=== PATIENT | female | born 1990 | race Two or more races ===

== ENCOUNTER → 2020-01-15 | Outpatient (CLI) | payer OTHER | END | disposition home or self-care (01) | LOC: LAB 10:36 | PROVIDERS: ATTEND Preventive Medicine Preventive Medicine/Occupational Environmental Medicine | DX: Z02.1 Encounter for pre-employment examination (principal) | CPT/HCPCS: 36415; 86706; 86735; 86762; 86765; 86787 ==

== ENCOUNTER → 2020-06-26 | Outpatient (CLI) | payer BC ==
[2020-06-26 14:44] LABS: Eosinophils # (auto) 0.1 10 ^3/uL (0-0.8); Lymphocytes # (auto) 1.9 10 ^3/uL (0.4-5.4); Mean Corpuscular Hemoglobin 20.2 pg (28.0-32.0); Neutrophils # (auto) 7.1 10 ^3/uL (1.6-8.6); White Blood Cell 9.7 10^3/uL (4.4-10.8)
[2020-06-26 14:46] LABS: Basophils # (auto) 0 10 ^3/uL (0-0.2); Basophils % (auto) 0.5 % (0.0-2.0); Eosinophils % (auto) 0.5 % (0.0-7.0); Hematocrit 31.6 % (36.0-46.0); Hemoglobin 9.9 g/dL (12.2-16.2); Lymphocytes % (auto) 19.5 % (10.0-50.0); Mean Corpuscular Hgb Conc. 31.3 g/dL (32.0-36.0); Mean Corpuscular Volume 64.6 fL (80.0-100.0); Monocytes # (auto) 0.6 10 ^3/uL (0-1.3); Monocytes % (auto) 6.7 % (0.0-12.0); Neutrophils % (auto) 72.8 % (37.0-80.0); Platelet Count (auto) 483 10^3/uL (140-450); Red Blood Cells 4.89 10^6/uL (4.0-5.20); Red Cell Distribution Width 18.8 % (11.8-14.3)
[2020-06-26 15:09] LABS: Calcium 8.6 mg/dL (8.5-10.1); Potassium 3.6 mmol/L (3.5-5.1)
[2020-06-26 15:13] LABS: BUN/Creatinine Ratio 12.7; Bilirubin, Total 0.5 mg/dL (0.2-1.0); Total Protein 8.6 g/dL (6.4-8.2)
== END | disposition home or self-care (01) ==
LOC: LAB 14:36
PROVIDERS: ATTEND Physician Assistant
DX: R53.83 Other fatigue (principal)
CPT/HCPCS: 36415; 80053; 85025

== ENCOUNTER 2021-09-04 07:53 | Emergency (ER) | payer BC ==
[~2021-09-04] VITALS: Ht 152.4 cm; Wt 77.1 kg
[2021-09-04 08:32] VITALS: BP 132/83
[2021-09-04 08:44] LABS: Eosinophils # (auto) 0.2 10 ^3/uL (0-0.8); Monocytes # (auto) 0.6 10 ^3/uL (0-1.3); Nucleated Red Blood Cells % 0.1 %; Red Blood Cells 4.71 10^6/uL (4.0-5.20)
[2021-09-04 08:47] LABS: Basophils # (auto) 0.1 10 ^3/uL (0-0.2); Basophils % (auto) 0.6 % (0.0-2.0); Eosinophils % (auto) 2.7 % (0.0-7.0); Hematocrit 32.3 % (36.0-46.0); Lymphocytes # (auto) 2.2 10 ^3/uL (0.4-5.4); Lymphocytes % (auto) 27.4 % (10.0-50.0); Mean Corpuscular Hemoglobin 21.1 pg (28.0-32.0); Mean Corpuscular Hgb Conc. 30.8 g/dL (32.0-36.0); Mean Corpuscular Volume 68.6 fL (80.0-100.0); Monocytes % (auto) 7.2 % (0.0-12.0); Neutrophils % (auto) 62.1 % (37.0-80.0); Red Cell Distribution Width 20.1 % (11.8-14.3); White Blood Cell 8.1 10^3/uL (4.4-10.8)
[2021-09-04 08:53] LABS: BUN/Creatinine Ratio 11.8; Calcium 8.5 mg/dL (8.5-10.1); Potassium 3.7 mmol/L (3.5-5.1)
[2021-09-04 08:56] LABS: INR 1.01 (0.9-1.15)
[2021-09-04] MEDS ORDERED: KETOROLAC TROMETH 60MG/2ML VIAL IM ONE (09:30)
[2021-09-04] MEDS ORDERED: MEDR5TAB28 OR (09:52)
[2021-09-04] MEDS ORDERED: NAPR500T31 PO (09:52)
== END 2021-09-04 09:47 | disposition home or self-care (01) ==
LOC: ER 07:53
DX: N92.1 Excessive and frequent menstruation with irregular cycle (principal); D64.9 Anemia, unspecified; D25.9 Leiomyoma of uterus, unspecified
CPT/HCPCS: 36415; 80048; 84443; 85025; 85610; 96372; 99283; J1885

== ENCOUNTER 2022-09-25 10:16 | Emergency (ER) | payer BC ==
[~2022-09-25] VITALS: Ht 152.4 cm; Wt 79.5 kg
[~2022-09-25 10:16] MED LIST: MEDR5TAB28 OR; NAPR500T31 PO
[2022-09-25 10:55] LABS: Basophils # (auto) 0.1 10 ^3/uL (0-0.2); Eosinophils # (auto) 0.4 10 ^3/uL (0-0.8); Monocytes # (auto) 0.7 10 ^3/uL (0-1.3)
[2022-09-25 10:56] LABS: Basophils % (auto) 1.1 % (0.0-2.0); Eosinophils % (auto) 4.9 % (0.0-7.0); Hematocrit 22.3 % (36.0-46.0); Lymphocytes % (auto) 24.8 % (10.0-50.0); Mean Corpuscular Hemoglobin 17.8 pg (28.0-32.0); Mean Corpuscular Hgb Conc. 29.4 g/dL (32.0-36.0); Mean Corpuscular Volume 60.5 fL (80.0-100.0); Monocytes % (auto) 8.2 % (0.0-12.0); Neutrophils # (auto) 4.9 10 ^3/uL (1.6-8.6); Nucleated Red Blood Cells % 0.1 %; Red Blood Cells 3.69 10^6/uL (4.0-5.20); White Blood Cell 8.1 10^3/uL (4.4-10.8)
[2022-09-25 11:03] LABS: Hemoglobin 6.6 g/dL (12.2-16.2)
[2022-09-25 11:09] LABS: INR 0.93 (0.9-1.15); Partial Thromboplastin Time 21.4 sec (24.6-33.4)
[2022-09-25 11:12] LABS: Albumin 3.7 g/dL (3.4-5.0); Calcium 8.5 mg/dL (8.5-10.1); Potassium 3.6 mmol/L (3.5-5.1)
[2022-09-25 11:17] LABS: BUN/Creatinine Ratio 12.1; Bilirubin, Total 0.3 mg/dL (0.2-1.0); Total Protein 8.1 g/dL (6.4-8.2)
[2022-09-25] MEDS ORDERED: SODIUM CHLORIDE 0.9% 1,000 ML IV ONE (11:30)
[2022-09-25] MEDS ORDERED: GADOTERATE MEG 10 MMOL/20ml INJ (0.5MMOL/ml) IV ONE (11:50)
[2022-09-25 16:48] VITALS: BP 113/63
[2022-09-25 17:03] VITALS: BP 103/52
[2022-09-25 19:52] VITALS: BP 114/74
[2022-09-25] MEDS ORDERED: FERR-7 PO (21:35)
== END 2022-09-25 21:47 | disposition home or self-care (01) ==
LOC: ER 10:16 → EEVIPCON 10:16 → ER 21:46
DX: D50.9 Iron deficiency anemia, unspecified (principal); D25.9 Leiomyoma of uterus, unspecified; N92.0 Excessive and frequent menstruation with regular cycle
CPT/HCPCS: 36415; 36430; 73723; 80053; 85025; 85610; 85730; 86850; 86900; 86901; 86920; 96360; 99285; A9575; J7030; P9016

== ENCOUNTER 2022-10-03 09:03 | Inpatient (IN) | payer BC ==
[~2022-10-03] VITALS: Ht 152.4 cm; Wt 90.0 kg
[~2022-10-03 09:03] MED LIST changes: +FERR-7 PO
[2022-10-03] MEDS ORDERED: SODIUM CHLORIDE 0.9% 1,000 ML IV ONE (09:15)
[2022-10-03] MEDS ORDERED: ENOXAPARIN SOD 80 MG/0.8ML SYRINGE SC ONE (09:45)
[2022-10-03 09:46] LABS: Hematocrit 31.1 % (36.0-46.0); Lymphocytes # (auto) 1.4 10 ^3/uL (0.4-5.4); Monocytes # (auto) 0.3 10 ^3/uL (0-1.3); Red Blood Cells 4.59 10^6/uL (4.0-5.20)
[2022-10-03 09:48] LABS: Basophils # (auto) 0 10 ^3/uL (0-0.2); Basophils % (auto) 0.7 % (0.0-2.0); Eosinophils # (auto) 0.2 10 ^3/uL (0-0.8); Eosinophils % (auto) 2.3 % (0.0-7.0); Hemoglobin 9.8 g/dL (12.2-16.2); Lymphocytes % (auto) 20.5 % (10.0-50.0); Mean Corpuscular Hemoglobin 21.4 pg (28.0-32.0); Mean Corpuscular Hgb Conc. 31.5 g/dL (32.0-36.0); Mean Corpuscular Volume 67.8 fL (80.0-100.0); Monocytes % (auto) 4.5 % (0.0-12.0); Neutrophils # (auto) 5.1 10 ^3/uL (1.6-8.6)
[2022-10-03 09:50] LABS: Albumin 3.6 g/dL (3.4-5.0); Calcium 8.5 mg/dL (8.5-10.1); Potassium 3.8 mmol/L (3.5-5.1)
[2022-10-03 09:53] LABS: BUN/Creatinine Ratio 11.1; Bilirubin, Total 0.3 mg/dL (0.2-1.0); INR 0.96 (0.9-1.15); Total Protein 7.5 g/dL (6.4-8.2)
[2022-10-03 10:01] LABS: Red Cell Distribution Width 34.5 % (11.8-14.3)
[2022-10-03] MEDS ORDERED: HYDROcodone-ACET 5/325MG TAB PO PRN (10:45)
[2022-10-03] MEDS ORDERED: ACETAMINOPHEN 325 MG TAB PO PRN (10:45)
[2022-10-03 11:20] LABS: Cholesterol 183 mg/dL (< 200); Triglycerides 221 mg/dL (< 150)
[2022-10-03 11:23] LABS: HDL Cholesterol 50 mg/dL (40-59); LDL Cholesterol 112 mg/dL (< 100)
[2022-10-03 11:51] LABS: Urine Bacteria MOD /hpf (None Seen); Urine Blood Negative /uL (Negative); Urine Specific Gravity 1.005 (1.001-1.035); Urine WBC 2 /hpf (0 - 5)
[2022-10-03 12:42] LABS: % Iron Saturation 3.6 % (15-50)
[2022-10-03] MEDS: SODIUM CHLORIDE 0.9% 1,000 ML IV SCH (14:56)
[2022-10-03] MEDS: FERROUS SULFATE 325mg EC TAB PO SCH ×2 (15:03→21:31)
[2022-10-03 17:10] VITALS: BP 111/80
[2022-10-03] MEDS: ENOXAPARIN SOD 80 MG/0.8ML SYRINGE SC SCH (21:32)
[2022-10-03 22:00] VITALS: BP 126/78
[2022-10-04] MEDS: SODIUM CHLORIDE 0.9% 1,000 ML IV SCH (03:25)
[2022-10-04 05:00] VITALS: BP 102/66
[2022-10-04] MEDS: FERROUS SULFATE 325mg EC TAB PO SCH ×2 (06:04→14:16)
[2022-10-04 06:47] LABS: Albumin 3.3 g/dL (3.4-5.0); BUN/Creatinine Ratio 13.7; Calcium 8.4 mg/dL (8.5-10.1); Potassium 3.7 mmol/L (3.5-5.1)
[2022-10-04 06:50] LABS: Bilirubin, Total 0.2 mg/dL (0.2-1.0); Total Protein 7.4 g/dL (6.4-8.2)
[2022-10-04 09:05] VITALS: BP 112/75
[2022-10-04] MEDS: ENOXAPARIN SOD 80 MG/0.8ML SYRINGE SC SCH (10:31)
[2022-10-04 13:03] VITALS: BP 110/69
[2022-10-04] MEDS ORDERED: APIX5TAB PO (15:46)
[2022-10-04 16:40] VITALS: BP 112/75
[2022-10-04 17:07] VITALS: BP 114/72
[2022-10-05 09:35] LABS: Folate (Folic Acid) 19.37 ng/mL (5.38-24)
== END 2022-10-04 18:00 | disposition home or self-care (01) | DRG 301 ==
LOC: ER 09:03 → EEVIPCON 09:03 → OVERFLOW 10:45 → EEVIPCON 10:45 → WEST WING 14:00
PROVIDERS: ADMIT Nurse Practitioner Family; ATTEND Nurse Practitioner Family
DX: I82.441 Acute embolism and thrombosis of right tibial vein (principal); E66.01 Morbid (severe) obesity due to excess calories; D25.9 Leiomyoma of uterus, unspecified; D50.9 Iron deficiency anemia, unspecified; E78.5 Hyperlipidemia, unspecified; N83.209 Unspecified ovarian cyst, unspecified side; Z20.822 Contact with and (suspected) exposure to COVID-19; Z68.38 Body mass index [BMI] 38.0-38.9, adult
CPT/HCPCS: 36415; 80053; 80061; 81001; 81025; 82270; 82607; 82746; 83036; 83540; 83550; 84443; 85025; 85610; 86850; 86900; 86901; 87426; 93971; 96360; 96361; 96372; G0378

== ENCOUNTER → 2022-10-13 | Outpatient (CLI) | payer BC ==
[~2022-10-13] MED LIST changes: +APIX5TAB PO
[2022-10-13 09:33] LABS: Eosinophils # (auto) 0.2 10 ^3/uL (0-0.8); Neutrophils # (auto) 3.8 10 ^3/uL (1.6-8.6); White Blood Cell 6.2 10^3/uL (4.4-10.8)
[2022-10-13 09:36] LABS: Basophils # (auto) 0 10 ^3/uL (0-0.2); Basophils % (auto) 0.8 % (0.0-2.0); Eosinophils % (auto) 3.8 % (0.0-7.0); Hematocrit 27.5 % (36.0-46.0); Hemoglobin 8.9 g/dL (12.2-16.2); Lymphocytes # (auto) 1.8 10 ^3/uL (0.4-5.4); Lymphocytes % (auto) 28.5 % (10.0-50.0); Mean Corpuscular Hemoglobin 23.3 pg (28.0-32.0); Mean Corpuscular Hgb Conc. 32.3 g/dL (32.0-36.0); Mean Corpuscular Volume 72.1 fL (80.0-100.0); Monocytes # (auto) 0.4 10 ^3/uL (0-1.3); Neutrophils % (auto) 60.9 % (37.0-80.0); Nucleated Red Blood Cells % 0.2 %; Red Blood Cells 3.81 10^6/uL (4.0-5.20)
[2022-10-13 10:08] LABS: Red Cell Distribution Width 31.6 % (11.8-14.3)
[2022-10-13 10:21] LABS: Ferritin 23.5 ng/mL (10-322); Follicle Stimulating Hormone 5.68 IU/L (SEE BELOW); Leuteinizing Hormone 5.4 IU/L
[2022-10-13 10:40] LABS: % Iron Saturation 2.8 % (15-50)
[2022-10-13 10:41] LABS: Albumin 3.7 g/dL (3.4-5.0); BUN/Creatinine Ratio 13.6; Bilirubin, Total 0.3 mg/dL (0.2-1.0); Calcium 8.7 mg/dL (8.5-10.1); Potassium 3.7 mmol/L (3.5-5.1); Total Protein 7.6 g/dL (6.4-8.2)
== END | disposition home or self-care (01) ==
LOC: LAB 08:52
PROVIDERS: ATTEND Nurse Practitioner Family
DX: N84.0 Polyp of corpus uteri (principal); D50.0 Iron deficiency anemia secondary to blood loss (chronic); E66.1 Drug-induced obesity; D25.9 Leiomyoma of uterus, unspecified; D64.9 Anemia, unspecified; Z68.34 Body mass index [BMI] 34.0-34.9, adult
CPT/HCPCS: 36415; 80053; 80061; 82306; 82607; 82672; 82728; 83001; 83002; 83036; 83540; 83550; 84403; 84443; 85025; 87086

== ENCOUNTER → 2023-05-27 | Outpatient (CLI) | payer BC ==
[~2023-05-27] MED LIST changes: +CEPH250C PO; +NAPR-746 PO; -NAPR500T31 PO
[2023-05-27 11:29] LABS: Basophils # (auto) 0.1 10 ^3/uL (0-0.2); Eosinophils # (auto) 0.2 10 ^3/uL (0-0.8); Nucleated Red Blood Cells % 0.1 %
[2023-05-27 11:30] LABS: Basophils % (auto) 1.6 % (0.0-2.0); Hematocrit 32.9 % (36.0-46.0); Hemoglobin 10.1 g/dL (12.2-16.2); Lymphocytes % (auto) 25.8 % (10.0-50.0); Mean Corpuscular Hemoglobin 19.7 pg (28.0-32.0); Mean Corpuscular Hgb Conc. 30.5 g/dL (32.0-36.0); Mean Corpuscular Volume 64.5 fL (80.0-100.0); Monocytes # (auto) 0.5 10 ^3/uL (0-1.3); Neutrophils % (auto) 63.6 % (37.0-80.0); Red Blood Cells 5.11 10^6/uL (4.0-5.20); White Blood Cell 7.9 10^3/uL (4.4-10.8)
[2023-05-27 11:43] LABS: Urine Bacteria FEW /hpf (None Seen); Urine Blood Negative /uL (Negative); Urine Clarity HAZY (Clear); Urine Color Colorless (Yellow); Urine Protein, UAD Negative (Negative); Urine Specific Gravity 1.018 (1.001-1.035); Urine Urobilinogen Normal (Negative); Urine WBC 3 /hpf (0 - 5); Urine pH 5.5 (5.0-8.0)
[2023-05-27 11:44] LABS: INR 1.04 (0.9-1.15); Partial Thromboplastin Time 25.1 SEC (24.5-34.5); Prothrombin Time 10.9 sec (9.3-11.8)
[2023-05-27 12:35] LABS: % Iron Saturation 9.1 % (15-50)
[2023-05-27 12:36] LABS: Alanine Aminotransferase 33 U/L (7-40); Albumin 4.7 g/dL (3.2-4.8); Alkaline Phosphatase 89 U/L (46-116); Anion Gap 9 (5-15); Aspartate Aminotransferase 18 U/L (13-40); BUN/Creatinine Ratio 13.9 (10.0-20.0); Blood Urea Nitrogen 10 mg/dL (9-23); Calcium 9.2 mg/dL (8.5-10.1); Carbon Dioxide 25 mmol/L (20-30); Chloride 105 mmol/L (98-107); Glucose 98 mg/dL (74-106); LDL Cholesterol 136 mg/dL (< 100); Potassium 4.1 mmol/L (3.5-5.1); Sodium 139 mmol/L (136-145); Triglycerides 112 mg/dL (< 150)
[2023-05-27 12:37] LABS: Bilirubin, Total 0.4 mg/dL (0.2-1.0); Cholesterol 197 mg/dL (< 200); Folate (Folic Acid) 16.19 ng/mL (>5.38); HDL Cholesterol 51 mg/dL (40-59); Thyroid Stimulating Hormone 0.96 uIU/mL (0.55-4.78); Total Protein 7.9 g/dL (5.7-8.2)
[2023-05-27 12:38] LABS: Ferritin 32.6 ng/mL (10-291)
[2023-05-27 12:52] LABS: Anisocytosis Slight; Hypochromia Marked; Platelet Estimate Increased
[2023-05-27 13:26] LABS: Uric Acid 4.7 mg/dL (3.1-7.8)
[2023-05-27 13:28] LABS: Magnesium 1.9 mg/dL (1.6-2.6)
[2023-05-29 20:06] LABS: Anticardiolipin IgG Antibody <9 GPL U/mL (0-14); Anticardiolipin IgM Antibody <9 MPL U/mL (0-12)
[2023-05-30 20:06] LABS: Antithrombin III Antigen 112 % (72-124); Protein S Antigen Free 107 % (61-136); Proten S Antigen Total 86 % (60-150)
[2023-05-31 15:06] LABS: Protein C Antigen 75 % (60-150)
== END | disposition home or self-care (01) ==
LOC: LAB 10:42
PROVIDERS: ATTEND Internal Medicine
DX: E61.2 Magnesium deficiency (principal); E79.0 Hyperuricemia without signs of inflammatory arthritis and tophaceous disease; R94.6 Abnormal results of thyroid function studies; R82.998 Other abnormal findings in urine; E55.9 Vitamin D deficiency, unspecified; R82.79 Other abnormal findings on microbiological examination of urine; D51.9 Vitamin B12 deficiency anemia, unspecified; E78.49 Other hyperlipidemia; R73.09 Other abnormal glucose; R78.89 Finding of other specified substances, not normally found in blood; R68.89 Other general symptoms and signs; D50.0 Iron deficiency anemia secondary to blood loss (chronic); I82.891 Chronic embolism and thrombosis of other specified veins
CPT/HCPCS: 36415; 80053; 80061; 81001; 81240; 81241; 82306; 82607; 82728; 82746; 83036; 83090; 83540; 83550; 83615; 83735; 84443; 84550; 85025; 85301; 85302; 85305; 85306; 85610; 85730; 86147; 87086